=== PATIENT | female | born 1995 | race Caucasian/White ===

== ENCOUNTER 2025-07-10 10:52 | Outpatient (AMB) | payer MEDICAID, SELFPAY ==
[2025-07-10 11:19] VITALS: BP 128/82; PULSE 83; RESP 16; TEMP 36.4; O2SAT 98; BMI 37.0
--- NOTE | 2025-07-10 11:19 | OBCLNT_ITS ---
Vital Signs 07/10/25 11:19 Height 1.5 m Height Method Stated Weight 83.178 kg Weight Measurement Method Standing Scale BMI 37.0 BP 128/82 Blood Pressure Source Automatic Cuff Blood Pressure Location Left Upper Arm Position Sitting Respiration 16 Pulse 83 Pulse Source Monitor Temp 97.6 F Temp Source Oral Pulse Oximetry (%) 98 Oxygen Delivery Method Room Air Allergies/Home Meds Allergies & Medications Allergies No Known Allergies Allergy (Verified 07/10/25 11:20) Medication Reconciliation No Known Home Medications 07/10/25 [History Confirmed 07/10/25] Intake Visit Data Collection New Patient or Established: New Patient (never been to [facility]) Reason for Visit:: TRANSFER INITIAL CARE Seen by Clinical Staff ONLY (RN/MA): No Senior Application Software Engineer Required: No Do You Feel Safe at Home: Yes Authorities Contacted: N/A PCP or OBGYN visit in last 3 months: Yes Hx Now: Yes Are you currently on any form of Control: No Last menstrual period: 10/30/24 Pain Present Currently: No Pain Scale Used: Morin-Pryor/Numerical Pain scale:: 0 Smoking Status Smoking Status: Current some day smoker Cessation Counseling Provided: VARUN was advised that quitting smoking is the single most important factor to protect the health of themselves and their family. Discussed the benefits of quitting smoking with patient. Encouraged patient to quit smoking and provided Cessation assistance materials and resources. Tobacco Use: Cigarette Years smoked: 9 Are you interested in Quitting?: No Immunizations Flu Vaccine in the Last 12 Months: No Flu Vaccine Exclusion Criteria: Refused by Patient Questionnaires Covid-19 Vaccine Questionnaire Has patient been vacinated for Covid-19 Have you been vacinated for Covid-19: No PHQ-9 PHQ-2 Over the last 2 weeks, how often have you been bothered by any of the following problems? 1. Little interest or pleasure in doing things: not at all 2. Feeling down, depressed, or hopeless: not at all Total score: 0 PHQ-9 3. Trouble falling or staying asleep, or sleeping too much: Not at all 4. Feeling tired or having little energy: Not at all 5. Poor appetite or overeating: Not at all 6. Feeling bad about yourself - or that you are a failure or have let yourself or your family down: Not at all 7. Trouble concentrating on things, such as reading the newspaper or watching television: Not at all 8. Moving or speaking so slowly that other people could have noticed? - Or the opposite - being so fidgety or restless that you have been moving around a lot more than usual: not at all 9. Thoughts that you would be better off or of hurting yourself in some way: Not at all Total score: 0 Source: Developed by Drs. Olivier Allen, Liliana Marc, Artur Desouza and colleagues, with an educational shree from [employer]. Depression screen completed yes Social History Living Situation History Marital Status: Lives With: Family Housing: House Tobacco History Smoking Status: Current some day smoker Second Hand Smoke Exposure: Yes Alcohol History Alcohol Intake: Former Alcohol Intake Frequency: holidays/special occasions only Domestic Abuse History Do You Feel Safe at Home: Yes History of Present Illness HPI Narrative This is a 29-year-old 5 para 2 transfer from [facility] for care. Patient initially got care from her OB in [place] and then transferred just a month ago at 32 weeks. Patient had limited records with her she reports that she has not had any problem with the . 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 Patient reports that she has never had any herpes outbreaks. So she is unaware when she is positive. and so she is taking acyclovir 400 mg 3 times daily for HSV suppression. Patient's first child had HSV positive encephalitis and that child is wheelchair-bound and also has cerebral palsy. Her second child has no history of health issues. Her last period October 30, 2024. Estimated due date August 06, 2025. December 15, 2024 she had a 6-week and 4-day ultrasound that confirmed dates. Her EDC is August 06, 2025. And patient had 2 other ultrasounds a couple weeks apart that also confirmed dates patient smokes cigarettes she is working on cutting back and she is smoking 1 or 2 a day. And there has been no problems with the patient denies any other health issues. And she has had no surgeries. Patient is A+, antibody screen negative, RPR nonreactive, rubella is immune, HIV negative, hep C negat keanu, hep B negative, she had her gonorrhea and Chlamydia were negative as well. NIPT was negative OB Initial Visit OB Flowsheet OB Flowsheet Initial Weight: Not Recorded Date -?-?-?-?-?-?-?-?-?-?-?-?- EGA Weight BP Alb Glu CTX Pres Fundal ht FHR Mov Dilation Station Effacement Hx Notes Visit Note 07/10/25 -?-?-?-?-?-?-?-?-?-?-?-?- 36w 1d 83.178 kg 128/82 absent cephalic 36 145 active 36-year-old 5 para 2 for OBI. Patient is a transfer from [facility] she moved from [place] with records. Reports movement. Denies leaking, bleeding, contractions. Her last period October 30, 2024. EDC based on her early ultrasound August 06, 2025. History of HSV seropositive. And patient is taking acyclovir 400 3 times daily. Denies any outbreaks of herpes. She smokes 1 to 2 cigarettes a day and working on stopping. She has also been taking a low-dose baby aspirin as well and no surgeries and no chronic health issues Scheduled stat sono with maternal- medicine. I we did SMA and cystic fibrosis carrier screens. Patient will try to get her other ultrasounds from her previous clinic. GBS today. Discussed labor precautions and kick count. Return in a week OB check Scheduled stat sono with mat ernal- medicine. I we did SMA and cystic fibrosis carrier screens. Patient will try to get her other ultrasounds from her previous clinic. GBS today. Discussed labor precautions and kick count. Return in a week OB check.3rd tri labs and carrier screen Menstrual History Menstrual reliability: definite Flow: normal Menstrual regularity: regular Monthly: Yes Age at menarche: 9 On control pills at conception: No Associated symptoms (LMP): Denies amenorrhea, nausea, vomiting, fatigue, breast tenderness, urinary frequency, irritability, bloating or other OB History : 5 Para: 2 Hx Total # of Abortions (Spontaneous & Elective): 2 # of Living Children: 2 Delivery History 1st : Child's name: ANJU date: 08/17/16 sex: female Gestational age at delivery (weeks): 37 Delivery type: vaginal Delivery complications: NONE History of depression before or after : No 2nd : Child's name: ZACHARY date: 01/04/25 sex: female Gestational age at delivery (weeks): 39 Delivery type: vaginal Delivery complications: NONE History of depression before or after : No Infection History & Risk Evaluation Patient or partner has history of Genital Herpes: Yes (PATIENT) Genetic Screening & History Genetic Screening/Teratology Counseling - Includes patient, baby's father, or anyone in either family with: 1. Patient's age 35 years or older as of estimated date of delivery: No 2. Thalassemia (Guamanian, Sao Tomean, Mediterranean, or Background); MCV less than 80: No 3. Neural Tube Defect (Meningomyelocele, Spina Bifida, or Anencephaly): No 4. Congenital Heart Defect: No 5. Down Syndrome: No 6. Bhaskar-Sachs (Ashkenazi Baptist, Cajun, Wallisian Hamilton): No 7. Echo Disease (Ashkenazi Baptist): No 8. Familial Dysautonomia (Ashkenazi Baptist): No 9. Sickle Cell Disease or Trait (): No 10. Hemophilia or other blood disorders: No 11. Muscular Dystrophy: No 12. Cystic Fibrosis: No 13. Juana Diaz's Chorea: No 14. Mental Retardation/Autism: No 15. Other inherited genetic or chromosomal disorder: No 16. Maternal Metabolic Disorder (EG,TYPE 1 Diabetes, PKU): No 17. Patient or baby's father had a child with defects not listed above: No 18. Recurrent loss or a stillbirth: No 19. Medications (including supplements, vitamins, herbs or otc drugs)/illicit/recreational drugs/alcohol since last menstrual period: No 20. Any other: No Infection History 1. Live with someone with TB or exposed to TB: No 2. Rash or viral illness since last menstrual period: No 3. Hepatitis B,C: No Other (see comments) Source: [employer] [place] Review of Systems Review of Systems Systems Reviewed: All systems reviewed, normal except as documented Constitutional Constitutional: Denies fatigue Gastrointestinal Gastrointestinal: Denies bloating, Denies nausea and Denies vomiting Genitourinary Genitourinary: Denies amenorrhea and Denies urinary frequency Psychiatric Psychiatric: Denies irritability Endocrine Endocrine: Denies fatigue Exam General Limitations: no limitations General Appearance: alert, in no apparent distress, comfortable, cooperative, healthy appearing, well developed and well groomed Head Head exam: atraumatic, normocephalic and normal inspection ENT ENT exam: Present normal exam, normal oropharynx and mucous membranes moist Neck Neck exam: Present normal inspection, full ROM and trachea midline Chest Chest inspection: Present normal inspection and symmetric chest wall rise Resp Respiratory exam: Present normal lung sounds bilaterally Abdominal Abdominal exam: Present soft and normal bowel sounds Psych Psychiatric exam: Present normal affect and normal mood Office Procedures OBC Clinic LOC & Office Proc's Nursing/Assessment Patient Status: Initial/New Patient OB Clinic Nursing Assessment: Medication Reconciliation, Update PMH in EMR and Vital Signs OB Clinic Coordination of Care: Complex Care and Chronic Disease 1-5, Consent,records obtained, informed consent, Education Simp Pt/Fam, 1 Ins Authorization, Lab and Imaging orders, Results/Orders obtained and Staff clarify orders Special Needs: Heart tones New Patient Charge New Patient Point Assignment: [id number] New Patient Point Charge: MATERIAL MIXER Level 4 ([id number]) Injection/Vaccine Admin SQ Im Injection: Yes Assessment & Plan Diagnosis / Problem List (1) Encounter for supervision of high risk in third trimester, antepartum: Status: Acute Plan Schedule stat maternal- medicine ultrasound. With [facility]. Discussed labor precautions. Continue valacyclovir 400 3 times daily. And prenatals. Kick count twice a day. Be vigilant about leaking fluid or any perineal lesions. We did third trimester labs and carrier screens today and return in a week OB check. And GBS was today also Additional Plan Follow Up: 1 Week (obc)
== END 2025-07-10 11:48 | disposition home or self-care (01) ==
PROVIDERS: Supervising Provider Advanced Practice Midwife; Visit Provider Advanced Practice Midwife
DX: O09.893 Supervision of other high risk pregnancies, third trimester (principal); O99.333 Smoking (tobacco) complicating pregnancy, third trimester; F17.210 Nicotine dependence, cigarettes, uncomplicated; Z3A.36 36 weeks gestation of pregnancy; Z36.85 Encounter for antenatal screening for Streptococcus B; Z71.6 Tobacco abuse counseling; Z82.0 Family history of epilepsy and other diseases of the nervous system
CPT/HCPCS: 96372; 99204; G0463

== ENCOUNTER 2025-07-19 13:49 | Outpatient (AMB) | payer MEDICAID, SELFPAY ==
[2025-07-19 14:02] VITALS: BP 126/81; PULSE 93; RESP 18; TEMP 36.7; O2SAT 97; BMI 37.3
--- NOTE | 2025-07-19 14:02 | OBCLNT_ITS ---
Vital Signs 07/19/25 14:02 Height 1.5 m Height Method Stated Weight 84.028 kg Weight Measurement Method Standing Scale BMI 37.3 BP 126/81 Blood Pressure Source Automatic Cuff Blood Pressure Location Right Upper Arm Position Sitting Respiration 18 Pulse 93 Pulse Source Monitor Temp 98.1 F Temp Source Temporal Artery Scan Pulse Oximetry (%) 97 Oxygen Delivery Method Room Air Allergies/Home Meds Allergies & Medications Allergies No Known Allergies Allergy (Verified 07/19/25 14:03) Medication Reconciliation No Known Home Medications 07/10/25 [History Confirmed 07/19/25] Immunizations Immunizations Flu Vaccine in the Last 12 Months: No Flu Vaccine Exclusion Criteria: No Exclusion Criteria Care OB Visit Log OB Flowsheet Initial Weight: Not Recorded Date -?-?-?-?-?-?-?-?-?-?-?-?- EGA Weight BP Alb Glu CTX Pres Fundal ht FHR Mov Dilation Station Effacement Hx Notes Visit Note 07/10/25 -?-?-?-?-?-?-?-?-?-?-?-?- 36w 1d 83.178 kg 128/82 absent cephalic 36 145 active 36-year-old 5 para 2 for OBI. Patient is a transfer from [facility] she moved from [place] with records. Reports movement. Denies leaking, bleeding, contractions. Her last period October 30, 2024. EDC based on her early ultrasound August 06, 2025. History of HSV seropositive. And patient is taking acyclovir 400 3 times daily. Denies any outbreaks of herpes. She smokes 1 to 2 cigarettes a day and working on stopping. She has also been taking a low-dose baby aspirin as well and no surgeries and no chronic health issues Scheduled stat sono with maternal- medicine. I we did SMA and cystic fibrosis carrier screens. Patient will try to get her other ultrasounds from her previous clinic. GBS today. Discussed labor precautions and kick count. Return in a week OB check Scheduled stat sono with mat ernal- medicine. I we did SMA and cystic fibrosis carrier screens. Patient will try to get her other ultrasounds from her previous clinic. GBS today. Discussed labor precautions and kick count. Return in a week OB check.3rd tri labs and carrier screen 07/19/25 -?-?-?-?-?-?-?-?-?-?-?-?- 37w 3d 84.028 kg 126/81 occasional cephalic 37 145 active 1 -3 50 Patient did not do carrier screens. Reports good movement. Patient was seen at [facility] 3 days ago with complaints contractions. She reports that the nurse told her she was 2-1/2 at that time. Denies leaking. She is losing her mucous plug. Denies any outbreak of lesions or changes reports good . sve: movement.sve: 50/mid. high/1-2, no lesion Continue acyclovir 400 3 times daily. Continue to be vigilant and watch for any outbreaks or changes that might seem different and may be signal herpes outbreak. To the hospital for leaking or regular contractions. Count movements twice a day. And advised patient to please get her carrier screen as well. DON Calculator Estimated Delivery Date Method Current WG Current Estimate 08/06/25 LMP (Certain) 37w 3d Other Estimates 07/28/25 Ultrasound #1 38w 5d Notes Visit Date: 07/19/25 Last Updated by: Reyna Richter CNM GBS- Visit Date: 07/10/25 Last Updated by: Reyna Richter CNM oB labs:11/28/24:= HSV-1 IGG reactive (Non reactive-A),+HSV-2 igg reactive(nonreactive A). NIPT-, A+, abs-, rpr;;nr, RUB imm, GC/CT-, HIV-,HC-,HBSAG-, UA- 1 hr gtt elevated, 3 hr gtt wnl Taking Acyclovir 400 tid Office Procedures OBC Clinic LOC & Office Proc's Nursing/Assessment Patient Status: Established Patient OB Clinic Nursing Assessment: Medication Reconciliation, Update PMH in EMR and Vital Signs OB Clinic Coordination of Care: Complex Care and Chronic Disease 1-5, Education Complex Pt/Fam, Consent,records obtained, informed consent, Lab and Imaging orders, Results/Orders obtained and Staff clarify orders Special Needs: Heart tones Established Patient Charge Established Patient Point Assignment: 140 Established Patient Point Charge: EP Level 4 (120-155) Assessment & Plan Diagnosis / Problem List (1) Genital herpes affecting : Status: Acute Qualifiers: Trimester: third trimester Qualified Code(s): O98.313 - Other infections with a predominantly sexual mode of transmission complicating , third trimester; A60.09 - Herpesviral infection of other urogenital tract Plan Continue Valtrex 500 3 times daily. Be vigilant and observe for signs and symptoms of a herpes outbreak. To the hospital for leaking water or bleeding. Kick count twice a day. Discussed labor precautions. Return in a week OB check Additional Plan Follow Up: 1 Week (obc)
== END 2025-07-19 14:14 | disposition home or self-care (01) ==
LOC: HODSOBC 13:49
PROVIDERS: Supervising Provider Advanced Practice Midwife; Visit Provider Advanced Practice Midwife
DX: O09.893 Supervision of other high risk pregnancies, third trimester (principal); O98.313 Other infections with a predominantly sexual mode of transmission complicating pregnancy, third trimester; A60.00 Herpesviral infection of urogenital system, unspecified; Z3A.37 37 weeks gestation of pregnancy
CPT/HCPCS: 99214; G0463

== ENCOUNTER 2025-07-27 14:59 | Outpatient (AMB) | payer MEDICAID, SELFPAY ==
[2025-07-27 15:08] VITALS: BP 123/79; PULSE 92; RESP 18; TEMP 36.8; O2SAT 95; BMI 37.3
--- NOTE | 2025-07-27 15:08 | OBCLNT_ITS ---
Vital Signs 07/27/25 15:08 Height 1.5 m Height Method Stated Weight 84.028 kg Weight Measurement Method Standing Scale BMI 37.3 BP 123/79 Blood Pressure Source Automatic Cuff Blood Pressure Location Left Upper Arm Position Sitting Respiration 18 Pulse 92 Pulse Source Monitor Temp 98.3 F Temp Source Oral Pulse Oximetry (%) 95 Oxygen Delivery Method Room Air Allergies/Home Meds Allergies & Medications Allergies No Known Allergies Allergy (Verified 07/27/25 15:09) Medication Reconciliation vitamins-iron fumarate 66 mg iron-folic acid 1 mg tablet tab PO 07/27/25 [History Confirmed 07/27/25] Immunizations Immunizations Flu Vaccine in the Last 12 Months: No Flu Vaccine Exclusion Criteria: Refused by Patient Care OB Visit Log OB Flowsheet Initial Weight: Not Recorded Date -?-?-?-?-?-?-?-?-?-?-?-?- EGA Weight BP Alb Glu CTX Pres Fundal ht FHR Mov Dilation Station Effacement Hx Notes Visit Note 07/10/25 -?-?-?-?-?-?-?-?-?-?-?-?- 36w 1d 83.178 kg 128/82 absent cephalic 36 145 active 36-year-old 5 para 2 for OBI. Patient is a transfer from [facility] she moved from [place] with records. Reports movement. Denies leaking, bleeding, contractions. Her last period October 30, 2024. EDC based on her early ultrasound August 06, 2025. History of HSV seropositive. And patient is taking acyclovir 400 3 times daily. Denies any outbreaks of herpes. She smokes 1 to 2 cigarettes a day and working on stopping. She has also been taking a low-dose baby aspirin as well and no surgeries and no chronic health issues Scheduled stat sono with maternal- medicine. I we did SMA and cystic fibrosis carrier screens. Patient will try to get her other ultrasounds from her previous clinic. GBS today. Discussed labor precautions and kick count. Return in a week OB check Scheduled stat sono with [facility] ernal- medicine. I we did SMA and cystic fibrosis carrier screens. Patient will try to get her other ultrasounds from her previous clinic. GBS today. Discussed labor precautions and kick count. Return in a week OB check.3rd tri labs and carrier screen 07/19/25 -?-?-?-?-?-?-?-?-?-?-?-?- 37w 3d 84.028 kg 126/81 occasional cephalic 37 145 active 1 -3 50 Patient did not do carrier screens. Reports good movement. Patient was seen at [facility] 3 days ago with complaints contractions. She reports that the nurse told her she was 2-1/2 at that time. Denies leaking. She is losing her mucous plug. Denies any outbreak of lesions or changes reports good . sve: movement.sve: 50/mid. high/1-2, no lesion Continue acyclovir 400 3 times daily. Continue to be vigilant and watch for any outbreaks or changes that might seem different and may be signal herpes outbreak. To the hospital for leaking or regular contractions. Count movements twice a day. And advised patient to please get her carrier screen as well. 07/27/25 -?-?-?-?-?-?-?-?-?-?-?-?- 38w 4d 84.028 kg 123/79 occasional cephalic 38 145 active Reports good movement. Discussed denies leaking or bleeding. Increased hip pain. Patient is asking for induction because of the hip pain and because they live in [place] and [place] [address] And they are worried about driving. GBS is negative Continue acyclov ir 403 oh 3 times daily. I discussed with patient to start taking vitamin C, lysine and zinc. Discussed labor precautions. Kick count twice a day. Patient is scheduled for induction August 02. They live in [place] and wanted to be closer to the hospital nervous about traveling in the dark. Also patient has a lot of hip pain and she was induced with her other 2 babies because of that. Discussed labor precautions. Kick count and patient is scheduled for August 02. She will call for bed in the morning DON Calculator Estimated Delivery Date Method Current WG Current Estimate 08/06/25 LMP (Certain) 39w 4d Other Estimates 07/28/25 Ultrasound #1 40w 6d 08/03/25 Ultrasound #2 40w 0d 08/06/25 Manual 39w 4d final don, 07/17 10/10, EFW%: 45.1% Notes Visit Date: 07/27/25 Last Updated by: YARELI Meeks 04/12/25: IUP 23w6, EFW 45.1%, Normal anatomy Visit Date: 07/19/25 Last Updated by: Reyna Richter CNM GBS- Visit Date: 07/10/25 Last Updated by: Reyna Richter CNM oB labs:11/28/24:= HSV-1 IGG reactive (Non reactive-A),+HSV-2 igg reactive(nonreactive A). NIPT-, A+, abs-, rpr;;nr, RUB imm, GC/CT-, HIV-,HC-,HBSAG-, UA- 1 hr gtt elevated, 3 hr gtt wnl Taking Acyclovir 400 tid Office Procedures OBC Clinic LOC & Office Proc's Nursing/Assessment Patient Status: Established Patient OB Clinic Nursing Assessment: Medication Reconciliation, Update PMH in EMR and Vital Signs OB Clinic Coordination of Care: Complex Care and Chronic Disease 1-5, Consent,records obtained, informed consent, Education Simp Pt/Fam, 1 Ins Authorization, Lab and Imaging orders, Results/Orders obtained and Staff clarify orders Special Needs: Heart tones Established Patient Charge Established Patient Point Assignment: 150 Established Patient Point Charge: EP Level 4 (120-155) Assessment & Plan Diagnosis / Problem List (1) Genital herpes affecting : Status: Acute Qualifiers: Trimester: third trimester Qualified Code(s): O98.313 - Other infections with a predominantly sexual mode of transmission complicating , third trimester; A60.09 - Herpesviral infection of other urogenital tract (2) Encounter for supervision of high risk in third trimester, antepartum: Status: Acute Plan Induction scheduled for August 02. I reviewed induction with patient. Discussed kick count twice a day. Be vigilant for herpetic lesions. Patient to start taking vitamin C, lysine and zinc. Signs and symptoms of labor reviewed and ER precautions return in a week if undelivered Additional Plan Follow Up: 1 Week (obc)
== END 2025-07-27 15:44 | disposition home or self-care (01) ==
LOC: HODSOBC 14:59
PROVIDERS: Supervising Provider Advanced Practice Midwife; Visit Provider Advanced Practice Midwife
DX: O09.893 Supervision of other high risk pregnancies, third trimester (principal); O98.313 Other infections with a predominantly sexual mode of transmission complicating pregnancy, third trimester; A60.00 Herpesviral infection of urogenital system, unspecified; Z3A.38 38 weeks gestation of pregnancy; Z28.21 Immunization not carried out because of patient refusal
CPT/HCPCS: 99214; G0463

== ENCOUNTER 2025-08-04 09:08 | Inpatient (IN) | payer MEDICAID, SELFPAY ==
[2025-08-04] VITALS (48 sets, daily range): BP systolic 108–193; BP diastolic 59–90; PULSE 73–141; RESP 18–19; TEMP 36.4–37.2; O2SAT 96–100; BMI 37.1
--- NOTE | 2025-08-04 10:03 | XR_ITS ---
Examination: Complete OB ultrasound greater than 14 weeks Date and time of exam: August 04, 2025, 1019 hours INDICATIONS: Scheduled for labor induction today, unknown weight and presentation. Findings: Viable intrauterine single fetus with single amniotic sac Viable intrauterine gestation cephalic presentation Cardiac motion 133 bpm Placenta anterior grade 3 Umbilical cord insertion 3 vessel seen Amniotic fluid index 3.9 cm Cervix 4.0 cm Right ovary 4.1 cm arterial flow Left ovary 3.4 cm arterial flow. Composite estimated gestational age based on BPD, head circumference, abdominal circumference, femur length is 38 weeks 2 days Estimated weight 3541 g. Survey of intracranial anatomy, spinal anatomy, abdominal anatomy, four-chamber heart performed with no abnormalities identified. Impression: Viable intrauterine gestation cephalic presentation. Estimated gestational age 38 weeks 2 days Estimated weight 3541 g.
[2025-08-04] MEDS: RINGERS LACTATED 1000 ML 1,000 ML 100 ML IV (10:50)
[2025-08-04 11:06] LABS: Basophils # (Auto) 0.1 Thou/mm3 (0.0-0.2); Basophils % (Auto) 0 % (0-2.5); Eosinophils # (Auto) 0.2 Thou/mm3 (0.0-0.5); Eosinophils % (Auto) 1 % (0-10); Hematocrit 38.9 % (36.0-46.0); Hemoglobin 13.5 g/dL (12.0-16.0); Immature Granulocytes Auto 0.13 Thou/mm3 (0.00-0.00); Lymphocytes # (Auto) 3.7 Thou/mm3 (1.0-4.8); Lymphocytes % (Auto) 27 % (10-50); Mean Corpuscular HGB Conc 34.7 g/dl (31.0-37.0); Mean Corpuscular Hemoglobin 30.5 pg (25.0-35.0); Mean Corpuscular Volume 88 fL (80-100); Monocytes # (Auto) 0.7 Thou/mm3 (0.0-0.8); Monocytes % (Auto) 5 % (0-12); Neutrophils # (Auto) 8.7 Thou/mm3 (1.8-7.7); Neutrophils % (Auto) 65 % (37-80); Nucleated Red Blood Cell # 0.00 Thou/mm3 (0.00-0.00); Nucleated Red Blood Cell % 0 /100 WBC (0); Platelet Count 400 Thou/mm3 (140-440); RDW Standard Deviation 43.6 fL (36.4-46.3); Red Blood Count 4.43 Miln/mm3 (4.00-5.20); White Blood Count 13.4 Thou/mm3 (3.6-11.0)
[2025-08-04 12:00] LABS: Syphilis Nonreactive (Nonreactive)
[2025-08-04] MEDS: ACYCLOVIR 200 MG CAPSULE 400 MG PO (14:16)
[2025-08-04] MEDS: fentaNYL CIT INJ 50 mCg/ML AMP 2ML 100 MCG IVP ×2 (17:13→18:28)
--- NOTE | 2025-08-04 17:44 | PD.LDHP ---
Documentation for date of: 08/04/25 OB Labor/Induct. HPI History of Present Illness Chief complaint: Induction of labor : 5 Para: 2 Term pregnancies: 2 pregnancies: 0 Living children: 2 History of Abortions: Spontaneous and Elective: 2 History of Vaginal deliveries: 2 History of sections: No History of : No Date of last menstrual period: 10/30/24 DON: 08/06/25 Gestational Age (weeks): 39 Gestational Age (days): 5 Gestational age based on last menstrual period: 39 History of present illness: Patient is a 29-year-old 5 para 2-0-2-2 at 39 weeks and 5 days who presents to labor and delivery for her scheduled elective induction of labor. Patient transferred care to the [facility] clinic in the third trimester. She was under the care of of YARELI Richter. Patient states that she had her previous 2 deliveries in [place] and she moved here during the current . 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 During the current she has been on acyclovir suppression which she reports that she has been compliant with. Patient takes 400 mg 3 times daily of acyclovir. Patient has no other complaints on presentation. Her labs which were done in [facility] are as below Hepatitis B negative RPR nonreactive rubella immune blood group is A+ antibody screen negative CBC showed hemoglobin 14.5 with platelets of 350 CMP was within normal limits except for a slightly elevated glucose for 100 hepatitis C negative her HSV 1 and 2 IgG was reactive HIV was negative Pap was negative NIPT negative for trisomy 21 1813 with gender consistent with male Group B strep negative I do not see any 1 hour glucose tolerance her third trimester labs and her records Patient does report that she smokes 1 to 2 cigarettes a day including during Labs Labs: Positive: Rubella Titre, Negative: RPR, Hepatitis B, HIV, Chlamydia, Gonorrhea and Group Beta Strep and Unknown: Herpes Type 1, Herpes Type 2 and Covid-19 Review of Systems Review of Systems Systems Reviewed: All systems reviewed, normal except as documented Past Medical History Surgical History SURGICAL: Negative Section Meds Home Medications and Allergies Home Medications ?Medication ?Instructions ?Recorded ?Confirmed ?Type acyclovir 400 mg tablet 400 mg PO TID 08/04/25 08/04/25 History Allergies Allergy/AdvReac Type Severity Reaction Status Date / Time Penicillins Allergy Severe Anaphylaxis Verified 08/04/25 09:22 OB Exam Physical Exam Vital signs: Temp Pulse Resp BP Pulse Ox O2 Del Method 97.6 F 84 18 124/77 97 Room Air 08/04/25 12:00 08/04/25 17:34 08/04/25 12:00 08/04/25 17:34 08/04/25 17:39 08/04/25 12:00 Constitutional Constitutional: no acute distress Routine HEENT Exam Head: Present normocephalic and atraumatic Eye: Present EOMI and PERRL ENT: Present mucous membranes moist Routine Neck Exam Neck: Present supple and trachea midline Routine Cardiovascular Exam Cardiovascular: Present RRR Routine Abdominal Exam Abdominal: Present soft and normoactive bowel sounds Detailed Labor and Delivery Exam Dilation (cm): 3 Effacement (%): 50 Cervix position: posterior station: -3 Consistency: medium Presentation: Vertex Baseline heart rate: 135 monitor accelerations: 15x15 monitor decelerations: None sales/marketing variability: Average (6-10) Routine Extremities Exam Extremities: Present full ROM Routine Skin Exam Skin: Present intact, dry and warm Routine Neurological Exam Neurological: Present alert, oriented X3 and CN II-XII intact Routine Psychiatric Exam Psychiatric: Present normal affect and normal thought process OB Results Labs 08/04/25 09:25 Labs: Short CBC 08/04/25 Range/Units 09:25 WBC 13.4 H (3.6-11.0) Thou/mm3 Hgb 13.5 (12.0-16.0) g/dL Hct 38.9 (36.0-46.0) % Plt Count 400 (140-440) Thou/mm3 OB Assessment & Plan Assessment and Plan (1) Encounter for supervision of high risk in third trimester, antepartum: Status: Acute (2) Genital herpes affecting : Status: Acute (3) Encounter for induction of labor: Status: Acute Assessment and plan: Patient is a 29-year-old 5 para 2 at 39 weeks and 5 days for elective induction of labor No active herpetic lesions seen at the time of admission Standard admission order set Will start with Cervidil and proceed to oxytocin Pain management as per protocol, at this time she does not desire epidural Group B strep negative Anticipate vaginal delivery (2) Genital herpes affecting Qualifiers: Trimester: third trimester Qualified Code(s): O98.313 - Other infections with a predominantly sexual mode of transmission complicating , third trimester; A60.09 - Herpesviral infection of other urogenital tract
[2025-08-04] MEDS: MINERAL OIL 30 ML UDC TOP (18:25)
[2025-08-04] MEDS: OXYTOCIN in NS 20 units 20 UNIT/1,000 ML BAG 125 UNIT IV (18:26)
[2025-08-04] MEDS: METHYLERGONOVINE INJ 0.2 MG/ML VIAL IM (18:30)
[2025-08-04] MEDS: TRANEXAMIC ACID 1,000 MG IVPB 1,000 MG/100 ML BAG 200 MG IV (18:32)
[2025-08-04] MEDS: BENZO/LANO/ALOE (Dermoplast) 60 GM CAN 1 SPRAY TOP (18:36)
[2025-08-04] MEDS: IBUPROFEN TAB 400 MG TABLET 800 MG PO (18:46)
--- NOTE | 2025-08-04 22:12 | PC.NURSE ---
Pt refused scheduled Acylovir, she stated she only take this medication until delivery.
[2025-08-05 00:13] VITALS: BP 133/81; RESP 15; TEMP 36.9; O2SAT 97
[2025-08-05] MEDS: IBUPROFEN TAB 400 MG TABLET 800 MG PO (02:44)
[2025-08-05 04:07] VITALS: BP 125/66; RESP 18; TEMP 36.8; O2SAT 95
[2025-08-05 06:02] LABS: Basophils # (Auto) 0.1 Thou/mm3 (0.0-0.2); Basophils % (Auto) 0 % (0-2.5); Eosinophils # (Auto) 0.1 Thou/mm3 (0.0-0.5); Eosinophils % (Auto) 1 % (0-10); Hematocrit 36.6 % (36.0-46.0); Hemoglobin 12.6 g/dL (12.0-16.0); Immature Granulocytes Auto 0.10 Thou/mm3 (0.00-0.00); Lymphocytes # (Auto) 4.2 Thou/mm3 (1.0-4.8); Lymphocytes % (Auto) 27 % (10-50); Mean Corpuscular HGB Conc 34.4 g/dl (31.0-37.0); Mean Corpuscular Hemoglobin 30.7 pg (25.0-35.0); Mean Corpuscular Volume 89 fL (80-100); Monocytes # (Auto) 0.9 Thou/mm3 (0.0-0.8); Monocytes % (Auto) 6 % (0-12); Neutrophils # (Auto) 10.2 Thou/mm3 (1.8-7.7); Neutrophils % (Auto) 66 % (37-80); Nucleated Red Blood Cell # 0.00 Thou/mm3 (0.00-0.00); Nucleated Red Blood Cell % 0 /100 WBC (0); Platelet Count 324 Thou/mm3 (140-440); RDW Standard Deviation 44.5 fL (36.4-46.3); Red Blood Count 4.11 Miln/mm3 (4.00-5.20); White Blood Count 15.6 Thou/mm3 (3.6-11.0)
[2025-08-05 08:00] VITALS: BP 142/81; RESP 18; TEMP 36.9; O2SAT 97
[2025-08-05] MEDS: DOCUSATE SOD 100 MG CAPSULE PO (08:05)
--- NOTE | 2025-08-05 10:18 | ESDS_ITS ---
DS: Providers Provider Date of admission: 08/04/25 09:08 Primary care physician: Physician No Primary/Family Admitting Provider: Minh Sarah MD Attending Provider on Admission: Minh Sarah MD Consults: 08/04/25 19:49 Referral Routine Comment: Attending Provider on DC: Yvonne Norman MD Discharging Provider: Yvonne Norman MD DS: Diagnosis Discharge Diagnosis (1) Encounter for induction of labor: Status: Acute (2) Genital herpes affecting : Status: Acute (3) Vaginal delivery: Status: Acute Problem List Completed Was Problem List Reviewed/Reconciled?: Yes Summary/Hosp Course Brief History: Patient is a 29-year-old 5 para 2-0-2-2 at 39 weeks and 5 days who presents to labor and delivery for her scheduled elective induction of labor. Patient transferred care to the [facility] clinic in the third trimester. She was under the care of of YARELI Richter. Patient states that she had her previous 2 deliveries in [place] and she moved here during the current . Patient has a history of genital herpes with herpes enc ephalitis and cerebral palsy in her first baby. During the current she has been on acyclovir suppression which she reports that she has been compliant with. Patient takes 400 mg 3 times daily of acyclovir. Patient has no other complaints on presentation. Her labs which were done in [facility] are as below Hepatitis B negative RPR nonreactive rubella immune blood group is A+ antibody screen negative CBC showed hemoglobin 14.5 with platelets of 350 CMP was within normal limits except for a slightly elevated glucose for 100 hepatitis C negative her HSV 1 and 2 IgG was reactive HIV was negative Pap was negative NIPT negative for trisomy 21 1813 with gender consistent with male Group B strep negative I do not see any 1 hour glucose tolerance her third trimester labs and her records Patient does report that she smokes 1 to 2 cigarettes a day including during She had a on 08/04/2025 / she would like to go home Peripartum Data Delivery Method: Normal Vaginal Delivery Episiotomy Description: None Laceration Description: see Delivery Summary complications: none Time Spent with Patient Time attestation: Total time spent providing and/or coordinating discharge services: Time spent: Greater than 30 minutes Exam Vital Signs Temp Pulse Resp BP Pulse Ox O2 Del Method 98.5 F 76 18 142/81 H 97 Room Air 08/05/25 08:00 08/04/25 20:31 08/05/25 08:00 08/05/25 08:00 08/05/25 08:00 08/05/25 08:00 Narrative Exam Patient had a normal vaginal delivery. care routine. She is doing well, VSS alert and oriented/normal insight and judgment/denies depression or anxiety No chest pain No shortness of breath No fever Back pain manageable/denies Moving all extremities No calf pain Ambulating pain managed by Tylenol and Motrin, normal Lochia average Voiding spontaneously Other medical issues Other concerns Planning to bottle Feed Counseled on breast-feeding Counseled on care and follow-up Discharge Plan Plan Patient Disposition: HOME (Self Care) Prescriptions/Referrals Prescriptions/Med Rec: New ibuprofen 600 mg tablet 800 mg PO Q8HR PRN (Reason: Pain Scale 4-6 (Moderate) Qty: 30 0RF No Action acyclovir 400 mg tablet 400 mg PO TID Patient Comments: TAKE 1 TABLET BY MOUTH THREE TIMES DAILY TAKE AT 36 WEEKS PER PROVIDER INSTRUCTIONS, DRINK PLENTY OF FLUIDS Referrals: No Primary/Family,Physician [Primary Care Provider] Patient/Caregiver Discharge Instructions Discharge Activity: activity as tolerated Other Discharge Activity Instructions:: pelvic rest x 6 weeks / follow up in 4 to 6 weeks with primary OB / continue acyclovir 400 mgm po TID till 6 weeks minimum Education Materials: After a Vaginal , Herpes: Treatment with Medication Print Language: Estonian Stand Alone Forms: Esme Award Info., Patient Portal Info Letter Discharge Order Discharge Orders: Discharge (Routine); Ordered 08/05/25 Ordered By: Yvonne Norman Planned Discharge Date 08/05/25 (2) Genital herpes affecting Qualifiers: Trimester: third trimester Qualified Code(s): O98.313 - Other infections with a predominantly sexual mode of transmission complicating , third trimester; A60.09 - Herpesviral infection of other urogenital tract
[2025-08-05 11:20] VITALS: BP 125/79; PULSE 67; RESP 18; TEMP 36.6; O2SAT 99
--- NOTE | 2025-08-05 13:52 | PC.NURSE ---
Patient cleared by social media analyst
--- NOTE | 2025-08-05 15:07 | PC.SS ---
concession worker (JARRET) Heather met with the patient and at bedside following a social service consult for hx of anxiety. The patient was BIB self, 39 weeks and 5 days, who presented for labor and delivery for her scheduled elective induction of labor. SW met with the patient at bedside and introduced self, role, and reason for the consult. SW discussed the limits of confidentially. Patient is alert and oriented to person, place, time, and situation. Patient verbally agreed to participate in the assessment with her at the bedside. Patient presented with good eye contact, cooperative, and appropriate. Patient presented with no signs of delusions, paranoia, or hallucinations at this time. Patient designated her , Geovanny Rodríguez, , as her surrogate medical decision maker. Patient is Ping Domingo, 29 y/o Congolese-speaking female residing with her and family at [address] [place] [address]. Patient is independent and able to attend to her ADLs. Patient has [facility]. Patient is unemployed, receiving child support, and social security disability for her 8 y/o daughter. Patient is connected to WIC services. Patient was advised to follow up with WIC and [employer] to update them on the baby's . Patient denied current and hx of suicidal/homicidal ideation, suicide attempts, visual/auditory hallucinations, abuse/neglect, or substance abuse. Patient reports hx of anxiety, currently not taking medication due to , but will f/u with her PCP to start her medication regimen. Patient denied hx or current involvement with CWS. SW educated the patient on baby blues and depression signs and symptoms, and to seek help as soon as possible if symptoms develop. Patient reports she received initial care in [place]. She then moved to [place] in May, where she continued to receive care at [facility] with Lens Generator Reyna Richter. Patient reports she had care during her whole . Patient delivered a baby boy, Geovanny Rodríguez, the patient's third baby. The baby's father is involved and is at bedside, bonding appropriately. Patient reports she has a car seat and all baby necessities. Discharge plan: Patient will be discharged home. will provide transportation?no needs at this time. SW provided community resources and the [facility].
[2025-08-05 15:15] VITALS: BP 121/72; PULSE 75; RESP 18; TEMP 36.8; O2SAT 97
--- NOTE | 2025-08-06 07:26 | PC.NURSE ---
LATE ENTRY: PT HAD CALLED ON 08/03 ABOUT 4 TIMES, ASKING FOR BED AVAILABILITY FOR IOL, THIS RN WAS UNABLE TO MAKE NOTE ON PT CHART ON THAT DAY, HAD INFORMED PT OF NO BEDS AVAILABLE FOR IOL, WILL CALL ONCE BED BECAME AVAILABLE, EDUCATED PT ON KICK COUNT AND LABOR PRECAUTIONS, PT VERBALIZED UNDERSTANDING
== END 2025-08-05 18:37 | disposition home or self-care (01) | DRG 560 ==
LOC: S4SX 10:36 → S4NX 21:11
PROVIDERS: Admitting Provider Obstetrics & Gynecology; Visit Provider Obstetrics & Gynecology
DX: O98.32 Other infections with a predominantly sexual mode of transmission complicating childbirth (principal); A60.00 Herpesviral infection of urogenital system, unspecified; Z3A.39 39 weeks gestation of pregnancy; Z37.0 Single live birth; O99.334 Smoking (tobacco) complicating childbirth; F17.210 Nicotine dependence, cigarettes, uncomplicated; Z88.0 Allergy status to penicillin
CPT/HCPCS: 36415; 59409; 76805; 85025; 86780; 86850; 86900; 86901; 94762; J2210; J2590; J3010; J3490; J7120; A9270